=== PATIENT | female | born 1980 | race Caucasian/White ===

== ENCOUNTER 2018-06-24 08:03 | Emergency (ER) | payer SELFPAY ==
[~2018-06-24] VITALS: Ht 165.1 cm; Wt 72.6 kg
[~2018-06-24 08:03] MED LIST: BNZT1T PO; CLIN-81 PO; FAMO-119 PO; HALOPERIDOL; HYOS0.1217 PO; KETO-22 PO; LAMO100T PO; LAMO100T69 PO; LORA10TA7 PO; MIRT15TA6 PO; ONDAN4ODT PO; PNT40TEC PO; PREN1TAB25 PO; SIMV10TA3 PO; TRAZ300T3 PO
--- OUTSIDE RECORDS SUMMARY | 2018-06-24 08:13 | XMS REPORT | Clinical Summary ---
Author [facility] Address Unknown Phone Unavailable Care Team Providers Care Traveling Auditor Name Role Phone PP Unavailable Allergies Not on File Medications Not on file Active Problems Not on file Social History Date Tobacco Use Types Packs/Day Years Used Never Assessed Sex Assigned at Date Recorded Not on file Industry Job Start Date Occupation Not on file Not on file Not on file Travel End Travel History Travel Start No recent travel history available. Plan of Treatment Health Maintenance Due Date Last Done Comments Varicella Vaccines (1 of 06/03/1991 2 - 13+ 2-dose series) DTaP,Tdap,and Td Vaccines 1997 (1 - Tdap) CERVICAL CANCER SCREENING 06/03/1999 Influenza Vaccine (Season 11/19/2018 Ended) Results Not on filefrom Last 3 Months
--- OUTSIDE RECORDS SUMMARY | 2018-06-24 08:13 | XMS REPORT | Clinical Summary ---
Author Author [facility] Organization [facility] Address Unknown Phone Unavailable Care Team Providers Care Distillery Worker General Name Role Phone Ramiro Kim RN Unavailable Unavailable No Pcp, Na PCP Unavailable Source Comments Some departments are not documenting in the electronic medical record. If you do not see the information that you expected, contact Release of Information in the Health Information Management department at [phone] for further assistance in locating additional records.[facility] Allergies Comments Active Allergy Reactions Severity Noted Date Amoxicillin-Pot ANAPHYLAXIS 10/03/2013 Clavulanate Azithromycin ANAPHYLAXIS 10/03/2013 Doxycycline Hcl ANGIOEDEMA 10/03/2013 Erythromycin ANAPHYLAXIS 10/03/2013 Cephalexin ANAPHYLAXIS 10/03/2013 Antidepressants. Pt. Reports that all antidepressants make her feel happy. Unclassified Drug SEE COMMENTS 10/03/2013 Penicillins ANGIOEDEMA 10/03/2013 Sulfa (Sulfonamide ANAPHYLAXIS 10/03/2013 Antibiotics) Medications End Date Status Medication Sig Dispensed Refills Start Date Active pregabalin (LYRICA) 50 mg Take 50 mg by 0 capsule mouth three times daily. Active traZODone (DESYREL) 100 Take 300 mg 0 mg tablet by mouth at bedtime daily. Active LAMOTRIGINE (LAMICTAL PO) Take 50 mg by 0 mouth twice daily. Active asenapine(+) (SAPHRIS Place 5 mg 0 (BLACK SCHUSTER)) 5 mg subl under tongue tablet twice daily. Active Problems Not on file Social History Date Tobacco Use Types Packs/Day Years Used Current Every Day Smoker Cigarettes 1 Alcohol Use Drinks/Week oz/Week Comments Yes Sex Assigned at Date Recorded Not on file Industry Job Start Date Occupation Not on file Not on file Not on file Travel End Travel History Travel Start No recent travel history available. Last Filed Vital Signs Time Taken Vital Sign Reading 10/03/2013 5:33 PM CDT Blood Pressure 126/61 - Pulse - - Temperature - - Respiratory Rate - 10/03/2013 5:33 PM CDT Oxygen Saturation 98% - Inhaled Oxygen - Concentration - Weight - - Height - - Body Mass Index - Plan of Treatment Health Maintenance Due Date Last Done Comments PHYSICAL (COMPREHENSIVE) 1985 EXAM HIV SCREENING 1993 DTAP/TDAP VACCINES (1 - 1996 Tdap) CERVICAL CANCER SCREENING 2008 INFLUENZA VACCINE 10/19/2017 BREAST CANCER SCREENING 2018 Results Not on filefrom Last 3 Months Advance Directives Patient has advance care planning documents on file. For more information, please contact: [facility] [address] [facility] [place] [address]
--- OUTSIDE RECORDS SUMMARY | 2018-06-24 08:14 | XMS REPORT ---
Author JIMENEZ Hardy Organization [employer] Address Unknown Phone Unavailable Care Team Providers Care Cathode Maker Name Role Phone JIMENEZ CROCKETT CP Unavailable Allergies, Adverse Reactions, Alerts Substance Reaction Event Type Ultram Info Not Available Drug Allergy Sulfacetamide Sodium Info Not Available Drug Allergy Keflex Info Not Available Drug Allergy Erythromycin Base Info Not Available Drug Allergy Toradol Info Not Available Drug Allergy Penicillins Info Not Available Non Drug Allergy Problems Problem Type Condition Code Onset Dates Condition Status Problem Special screening examination, human papillomavirus [HPV] V73.81 Active Problem Routine gynecological examination V72.31 Active Problem Screening for malignant neoplasm of the cervix V76.2 Active Assessment Dental examination Z01.20 Active Problem Pain in soft tissues of limb 729.5 Active Problem Unspecified high-risk V23.9 Active Problem Unspecified disorder of the teeth and supporting structures 525.9 Active Problem Unspecified myalgia and myositis 729.1 Active Problem General counseling for prescription of oral contraceptives V25.01 Active Problem Unspecified breast screening V76.10 Active Problem Screening examination for venereal disease V74.5 Active Problem Counseling on substance use and abuse V65.42 Active Medications Medication Code System Code Instructions Start Date End Date Status Dosage Clindamycin HCl [facility] [address]-07 300 mg Apr 01, 2014 1 capsule by Oral route every 12 hours for 7 day(s) Tagamet HB [facility] [address]-89 not defined [facility] [address] not defined Procedures Procedure Coding System Code Date INTRAORL-PERIAPICAL 1 FILM 86489 CPT-4 D0220 September 30, 2015 BITEWING - SINGLE FILM CPT-4 D0270 September 30, 2015 LTD ORAL EVALUATION - PROBLEM FOCUS CPT-4 D0140 September 30, 2015 Vital Signs Date/Time: September 30, 2015 Blood Pressure Diastolic 61 mmHg Blood Pressure Systolic 108 mmHg Height 66 in Results No Known Results Summary Purpose [employer] Submission
--- OUTSIDE RECORDS SUMMARY | 2018-06-24 08:14 | XMS REPORT ---
Author JIMENEZ Hardy Organization [employer] Address Unknown Phone Unavailable Care Team Providers Care Customer Care Assistant Name Role Phone JIMENEZ CROCKETT CP Unavailable [...] of the cervix V76.2 Active Assessment Dental caries K02.9 Active Problem Pain in soft tissues of [...] Date End Date Status Dosage Clindamycin HCl [facility] [address]-32 300 mg Apr 01, 2014 1 capsule by Oral route every 12 hours for 7 day(s) [facility] [address] not defined Tagamet HB [facility] [address]-34 not defined Procedures Procedure Coding System Code Date EXTRAC ERUPTED TOOTH/EXPOSED ROOT CPT-4 D7140 October 07, 2015 Vital Signs Date/Time: October 07, 2015 Blood Pressure Diastolic 55 mmHg Blood Pressure Systolic 105 mmHg Height 66 in Results No Known Results Summary Purpose [employer] Submission
--- OUTSIDE RECORDS SUMMARY | 2018-06-24 08:14 | XMS REPORT ---
Author OSCAR Boo [facility] [employer] Address Unknown Phone Unavailable Care Team Providers Care Cashier Tube Room Name Role Phone OSCAR WALLACE CP Unavailable Allergies No Known Allergies Problems Problem Type Condition Code Onset Dates Condition Status Problem Special screening examination, human papillomavirus [HPV] V73.81 Active Problem Routine gynecological examination V72.31 Active Problem Screening for malignant neoplasm of the cervix V76.2 Active Problem Pain in soft tissues of [...] substance use and abuse V65.42 Active Medications No Known Medications Results No Known Results Summary Purpose [employer] Submission
--- OUTSIDE RECORDS SUMMARY | 2018-06-24 08:14 | XMS REPORT | Clinical Summary ---
Author Author [facility] Organization [facility] Address Unknown Phone Unavailable Care Team Providers Care Camera Repairer Name Role Phone PCP Unavailable Allergies Not on File Current Medications Not on file Active Problems Not on file Social History Tobacco Use Types Packs/Day Years Used Date Never Assessed Sex Assigned at Date Recorded Not on file Last Filed Vital Signs Not on file Plan of Treatment Not on file Results Not on filefrom Last 3 Months
--- OUTSIDE RECORDS SUMMARY | 2018-06-24 08:14 | XMS REPORT ---
Author JIMENEZ Hardy Organization [employer] Address Unknown Phone Unavailable Care Team Providers Care Appellate Conferee Name Role Phone JIMENEZ CROCKETT CP Unavailable [...] Instructions Start Date End Date Status Dosage Tagamet HB [facility] [address]-07 not defined [facility] [address] not defined Procedures Procedure Coding System Code Date INTRAORL-PERIAPICAL 1 FILM 06972 CPT-4 D0220 May 21, 2015 INTRAORL-PERIAPICAL EA ADD FILM CPT-4 D0230 May 21, 2015 LTD ORAL EVALUATION - PROBLEM FOCUS CPT-4 D0140 May 21, 2015 PANORAMIC FILM SEE ALSO CODE 16821 CPT-4 D0330 May 21, 2015 BITEWING - SINGLE FILM CPT-4 D0270 May 21, 2015 Vital Signs Date/Time: May 21, 2015 Blood Pressure Diastolic 65 mmHg Blood Pressure Systolic 109 mmHg Results No Known Results Summary Purpose [employer] Submission
[2018-06-24 08:49] LABS: HEMATOCRIT 42 % (35-52); HEMOGLOBIN 14.3 G/DL (11.5-16.0); MEAN CORPUSCULAR HEMOGLOBIN 32 PG (25-34); MEAN CORPUSCULAR HGB CONC 34 G/DL (32-36); MEAN CORPUSCULAR VOLUME 94 FL (80-99); MEAN PLATELET VOLUME 10.5 FL (7.4-10.4); PLATELET COUNT 271 10^3/uL (130-400); RED CELL DISTRIBUTION WIDTH 12.8 % (10.0-14.5); WHITE BLOOD COUNT 5.2 10^3/uL (4.3-11.0)
[2018-06-24 08:50] LABS: BASOPHILS # (AUTO) 0.1 10^3/uL (0.0-0.1); BASOPHILS % (AUTO) 1 % (0-10); EOSINOPHILS # (AUTO) 0.3 10^3/uL (0.0-0.3); EOSINOPHILS % (AUTO) 5 % (0-10); LYMPHOCYTES % (AUTO) 38 % (12-44); MONOCYTES # (AUTO) 0.6 X 10^3 (0.0-1.0); MONOCYTES % (AUTO) 12 % (0-12); NEUTROPHILS # (AUTO) 2.2 X 10^3 (1.8-7.8); NEUTROPHILS % (AUTO) 43 % (42-75)
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
[2018-06-24 09:07] LABS: AMPHETAMINE SCREEN, URINE NEGATIVE (NEGATIVE); BENZODIAZEPINES SCREEN URINE NEGATIVE (NEGATIVE); COCAINE SCREEN URINE NEGATIVE (NEGATIVE); METHAMPHETAMINE SCREEN URINE S NEGATIVE (NEGATIVE)
[2018-06-24 09:07] LABS: ALANINE AMINOTRANSFERASE 40 U/L (0-55); ALBUMIN 4.4 GM/DL (3.2-4.5); ALKALINE PHOSPHATASE 58 U/L (40-136); BILIRUBIN,TOTAL 0.5 MG/DL (0.1-1.0); BUN/CREATININE RATIO 13; CALCIUM 9.7 MG/DL (8.5-10.1); CARBON DIOXIDE 12 MMOL/L (21-32); CHLORIDE 100 MMOL/L (98-107); CREATININE SERUM 0.85 MG/DL (0.60-1.30); GFR ESTIMATED > 60; GLUCOSE 107 MG/DL (70-105); SODIUM 139 MMOL/L (135-145); TOTAL PROTEIN 7.6 GM/DL (6.4-8.2)
[2018-06-24 09:08] LABS: BACTERIA,URINE NEGATIVE /HPF; BARBITURATE SCREEN URINE NEGATIVE (NEGATIVE); BILIRUBIN,URINE NEGATIVE (NEGATIVE); CANNABINOID SCREEN, URINE POSITIVE (NEGATIVE); CLARITY,URINE CLOUDY; COLOR,URINE YELLOW; GLUCOSE, URINE (UA) NEGATIVE (NEGATIVE); KETONES,URINE TRACE (NEGATIVE); LEUKOCYTE ESTERASE ,URINE NEGATIVE (NEGATIVE); METHADONE STAT NEGATIVE (NEGATIVE); NITRITE,URINE NEGATIVE (NEGATIVE); OPIATE SCREEN URINE NEGATIVE (NEGATIVE); OXYCODONE STAT NEGATIVE (NEGATIVE); PH,URINE 6 (5-9); PROPOXYPHENE STAT NEGATIVE (NEGATIVE); PROTEIN,URINE TRACE (NEGATIVE); SQUAMOUS EPITHELIAL CELL,UR 25-50 /HPF; TRICYCLIC ANTIDEPRESSANTS SCRE NEGATIVE (NEGATIVE); UROBILINOGEN,URINE 0.2 MG/DL (NORMAL)
--- NOTE | 2018-06-24 09:11 | Diagnostic Imaging Report ---
INDICATION: Chest pain. No prior examinations are available for comparison. FINDINGS: The heart size, mediastinal configuration, and pulmonary vascularity are within normal limits. There is no pleural effusion, pneumothorax, or pneumonia. The osseous structures are unremarkable. IMPRESSION: No acute cardiopulmonary abnormality. Dictated by: Dictated on workstation # [id number]
[2018-06-24 09:23] VITALS: BP 108/60
== END 2018-06-24 09:30 | disposition home or self-care (01) ==
LOC: EDUNIT# 08:03 → ER FS 08:09
DX: F41.9 Anxiety disorder, unspecified (principal); R07.9 Chest pain, unspecified; F12.10 Cannabis abuse, uncomplicated; F43.10 Post-traumatic stress disorder, unspecified; I09.9 Rheumatic heart disease, unspecified; F31.9 Bipolar disorder, unspecified; F25.9 Schizoaffective disorder, unspecified; M79.7 Fibromyalgia; F17.210 Nicotine dependence, cigarettes, uncomplicated; Z90.89 Acquired absence of other organs; Z96.651 Presence of right artificial knee joint; Z87.19 Personal history of other diseases of the digestive system; Z88.6 Allergy status to analgesic agent; Z88.1 Allergy status to other antibiotic agents
CPT/HCPCS: 36415; 71045; 80053; 80306; 80320; 81000; 84484; 85025